=== PATIENT | female | born 1990 | race American Indian/Alaskan Native ===

== ENCOUNTER 2017-05-06 14:04 | Emergency (ER) | payer SELFPAY | END 2017-05-06 14:05 | disposition left against medical advice (07) | LOC: ED 14:04 | DX: R10.9 Unspecified abdominal pain (principal); Z53.21 Procedure and treatment not carried out due to patient leaving prior to being seen by health care provider ==

== ENCOUNTER 2017-05-11 20:01 | Emergency (ER) | payer SELFPAY | END 2017-05-11 20:15 | disposition left against medical advice (07) | LOC: ED 20:01 | DX: R73.9 Hyperglycemia, unspecified (principal); Z53.21 Procedure and treatment not carried out due to patient leaving prior to being seen by health care provider ==